=== PATIENT | male | born 1980 | race Caucasian/White ===

== ENCOUNTER 2017-06-25 17:12 | Emergency (ER) | payer OTHER ==
[~2017-06-25] VITALS: Ht 172.7 cm; Wt 86.2 kg
[~2017-06-25 17:12] MED LIST: ACULAR LS5 ML OD; CYCLOBENZAPRINE10 M1 PO; DOXYCYCLINE MO100 MG PO; MARIJUANA; MOBIC15 M1 PO; POLYTRIM EYE DR10 ML OPH; VICODIN 5-3001 EACH PO
[2017-06-25 17:22] VITALS: BP 133/83
--- NOTE | 2017-06-25 19:21 | ED HEADACHE COMPLAINT ---
History of Present Illness General Chief Complaint: Headache Stated Complaint: MIGRANE Source: patient, family, old records Exam Limitations: no limitations Vital Signs & Intake/Output Vital Signs & Intake/Output Vital Signs Date Time Temp Pulse Resp B/P B/P Pulse O2 O2 Flow FiO2 Mean Ox Delivery Rate 06/25 1722 98.5 85 15 133/83 98 Room Air Room Air Allergies Coded Allergies: No Known Allergies (06/25/17) Reconcile Medications Hydrocodone/Acetaminophen (Vicodin 5-300 MG Tablet) 5 MG-300 MG TABLET 1 TAB PO Q4-6HR PRN PAIN Ketorolac Tromethamine (Acular Ls) 0.4 % DROPS 1 GTT OD 4 TIMES/DAY PRN pain [MARIJUANA] (Reported) Ondansetron (Zofran Odt) 4 MG TAB.RAPDIS 1 TAB SL TID PRN NAUSEA Polytrim (Polytrim Eye Drops) 10,000 UNIT-1 MG/ML DROPS 1 GTT OPH Q6 corneal abrasion Rosuvastatin Calcium (Crestor) 10 MG TABLET 1 TAB PO DAILY HLD Sumatriptan Succinate (Imitrex) 50 MG TABLET 1 TAB PO AD HEADACHE Verapamil HCl (Verapamil ER) 240 MG TABLET.ER 1 TAB PO DAILY CLUSTER OSEGUERA Triage Note: PT TO ED FOR C/C OF HEADACHE AROUND LEFT EYE/ LEFT SIDE OF FACE. PER PT, HE HAS HAD THE SAME HEADACHE THAT LASTS FOR ABOUT 30 MINS (POUNDING, THROBBING) WITH EYE WATERING, AND CONGESTION. PT STATES HEADACHE HAS SLIGHTLY RESOLVED BUT HAS BEEN GOING ON FOR APPROX 1 WEEK AND GETTING WORSE EACH DAY. ALL NEUROS INTACT IN TRIAGE. DENIES CHANGE IN VISION. 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 Triage Nurses Notes Reviewed? yes Onset: Abrupt Duration: week(s): (1), intermittent, unknown duration Timing: recent history Quality/Severity: moderate, severe, constant, sharp, stabbing Severity Numbers: 10 Head Injury Location: l sided No Modifying Factors: none Associated Symptoms: rhinorrhea, congestion, tearing from eye, nausea HPI: 36-year-old male with history of high cholesterol presents to ER thing for the past week he's had intermittent left-sided headaches, eye pain rhinorrhea congestion and tearing from his eye associated with nausea. The headaches last no longer than 30 minutes. He has not taken anything for his symptoms. No recent fall or head trauma. He denies history of similar headaches in the past. The patient states the only thing he can recall that is change recently is that he is switched to a new cannabis. There is no vision changes or vision loss when the episodes occur the last episode was just prior to arrival. No change in his mental status per family no neck or back pain no fever no chills no chest pain.no rashes to his skin (Cedric Covington) Past History Travel History Traveled to [place] past 21 day No Medical History Any Pertinent Medical History? see below for history Neurological: LYME DISEASE EENT: NONE Cardiovascular: hyperlipidemia Respiratory: NONE Gastrointestinal: NONE Hepatic: NONE Renal: NONE Musculoskeletal: NONE Psychiatric: NONE Endocrine: NONE Blood Disorders: NONE Cancer(s): NONE CRITICAL CARE NURSE PRACTITIONER/Reproductive: NONE Surgical History Surgical History: non-contributory Psychosocial History What is your primary language Chinese Tobacco Use: Current Daily Use Daily Tobacco Use Amount/Type: => 5 Cigarettes daily ETOH Use: denies use Illicit Drug Use: marijuana Family History Hx Contributory? No (Cedric Covington) Review of Systems Review of Systems Constitutional: Reports: see HPI. Comments Review of systems: See HPI, All other systems negative. Constitutional, no chills no fever, HEENT: no sore throat no congestion, no ear pain Cardiovascular: No chest pain , no palpitation Skin: no rashes, no change in skin Respiratory: No dyspnea no cough GI: nausea no vomiting, no diarrhea, : No dysuria No hematuria, no frequency Muscle skeletal: No joint pain, no back pain, no neck pain, Neurologic: headache Psych: No stress Heme/endocrine: No bruising Immunology: No lymphadenopathy (Cedric Covington) Physical Exam Physical Exam General Appearance: well developed/nourished, no apparent distress, alert, awake , comfortable Cranial Nerves: normal hearing, normal speech, PERRL Comments: Well-developed well-nourished person in no acute distress HEENT: Normal EENT exam; PERRL, EOMI, no nystagmus. No pappiledema, HEAD is atraumatic. moist mucous membranes. Neck: Supple, normal range of motion without pain or tenderness Back: Full range of motion Cardiovascular: Regular rate and rhythms no murmur Respiratory: No respiratory distress. Patient speaking in full complete sentences. Breath sounds clear to auscultation bilaterally: NO W/R/R Extremity: No edema, full range of motion of extremities 5 out of 5 strength noted to bilateral upper and lower extremity Neuro: Alert oriented x3, motor sensory normal, cranial nerves II through XII grossly intact. There were no obvious focal neurologic abnormalities. Skin: No appreciable rash on exposed skin, skin is warm and dry. Psych: Mood and affect is normal, memory and judgment is normal. Core Measures Sepsis Present: No Sepsis Focused Exam Completed? No (Cedric Covington) Progress Differential Diagnosis: cluster OSEGUERA, IC mass/tumor, intracranial Hem., meningitis , migraine OSEGUERA, musculoskeletal pain, subarach. Hem., tension OSEGUERA, temporal arteritis Plan of Care: Symptoms are consistent with a cluster headache fairly see any lateral lasting no longer than 30 minutes, the patient denies any headache at this time I discussed with him plan of care case was discussed with Dr. abdi-who agrees with plan and will start him on a abortive medication verapamil as well as Imitrex when necessary headache Zofran we'll refill his Crestor. Smoking cessation was discussed with the patient at leave. Return precautions were discussed at [facility] that if his symptoms recur he should come back to emergency room for treatment at that time including O2, Imitrex injection. He feels comfortable plan. (Cedric Covington) Departure Departure Time of Disposition: 1931 Disposition: HOME OR SELF CARE Condition: Stable Clinical Impression Primary Impression: Cluster headache Referrals: Patient Has No Primary Care Dr (PCP/Family) Additional Instructions: FOLLOW UP WITH PMD TOMORROW. VERAPAMIL DISCUSSED DAILY (THIS IS AN ABORTIVE MEDICATICON) FOR YOUR HEADACHE. IMITREX FOR YOUR HEADACHE. ZOFARN IF NEEDED FOR NAUSEA. RETURN AT ANYTIME SOONER IF YOU SYMPTOMS RECUR, WORSEN, OR YOU HAVE ANY OTHER CONCERNS. Departure Forms: Customer Survey General Discharge Information Prescriptions: Current Visit Scripts Rosuvastatin Calcium (Crestor) 1 TAB PO DAILY #30 TAB Sumatriptan Succinate (Imitrex) 1 TAB PO AD #9 TAB Verapamil HCl (Verapamil ER) 1 TAB PO DAILY #10 TAB Ondansetron (Zofran Odt) 1 TAB SL TID PRN NAUSEA #10 TAB (Cedric Covington) PA/TENN[employer] CENTRE MANAGER Co-Sign Statement Statement: ED Attending supervision documentation- I saw and evaluated the patient. I have also reviewed all the pertinent lab results and diagnostic results. I agree with the findings and the plan of care as documented in the PA's/TENNIS CENTRE MANAGER's documentation. x I have reviewed the ED Record and agree with the PA's/TENNIS CENTRE MANAGER's documentation. [] Additions or exceptions (if any) to the PAs/TENNIS CENTRE MANAGER's note and plan are summarized below: [] (Conor JEONG,Román)
[2017-06-25] MEDS ORDERED: ZOFRAN ODT4 M1 SL (19:34)
[2017-06-25] MEDS ORDERED: IMITREX50 M1 PO (19:34)
[2017-06-25] MEDS ORDERED: VERAPAMIL ER240 M1 PO (19:34)
[2017-06-25] MEDS ORDERED: CRESTOR10 M1 PO (19:34)
== END 2017-06-25 19:41 ==
LOC: ERH 17:12
DX: G44.009 Cluster headache syndrome, unspecified, not intractable (principal)